=== PATIENT | female | born 1985 | race Caucasian/White ===

== ENCOUNTER 2016-11-26 22:15 | Outpatient (CLI) | payer OTHER ==
[~2016-11-26] VITALS: Ht 172.7 cm; Wt 79.0 kg
[2016-11-26 23:05] VITALS: BP 109/65; PULSE 68; RESP 18
[2016-11-26] MEDS ORDERED: PNV1TABL12 PO (23:07)
[2016-11-26 23:28] LABS: ADD UMIC NO; UR ASCORBIC ACID NEGATIVE (NEGATIVE); UR BILIRUBIN (Dip) NEGATIVE (NEGATIVE); UR BLOOD (Dip) NEGATIVE (NEGATIVE); UR CLARITY CLEAR (CLEAR); UR COLOR STRAW (YELLOW); UR GLUCOSE (Dip) NEGATIVE (NEGATIVE); UR KETONES (Dip) NEGATIVE (NEGATIVE); UR LEUKOCYTE ESTERASE (Dip) NEGATIVE Leu/ul (NEGATIVE); UR NITRITE (Dip) NEGATIVE (NEGATIVE); UR SPECIFIC GRAVITY (Dip) 1.008 (1.003-1.030); UR TOTAL PROTEIN (Dip) NEGATIVE (NEGATIVE); UR UROBILINOGEN (Dip) NEGATIVE (NEGATIVE)
[2016-11-26] MEDS ORDERED: TERBUTALINE 1 MG/ML INJ SC ONE (23:30)
[2016-11-26] MEDS ORDERED: ACETAMINOPHEN 1000MG/100ML IV 100 ML IVPB ONE (23:30)
[2016-11-26] MEDS ORDERED: LACTATED RINGER'S 500 ML IV ONE (23:30)
[2016-11-26] MEDS ORDERED: LACTATED RINGER'S 1,000 ML IV SCH (23:30)
--- NOTE | 2016-11-26 23:38 | RADRPT ---
PROCEDURE: US biophysical profile. CLINICAL INDICATION: labor at 27 weeks gestational age. TECHNIQUE: Multiple sonographic images of the uterus were obtained. The images were revi ewed on a PACS workstation. COMPARISON: No prior studies are available for comparison. FINDINGS: There is a single live intrauterine gestation. heart rate is 137 beats per minute. The position is cephalic. The placenta is anterior grade 1 with no abruption or previa. The ALEXIS is 11.1 cm. (Normal = 5-20 cm.) Breathing Movement: 2 Gross Body Movement: 2 Tone: 2 Qualitative Amniotic Fluid Volume: 2 TOTAL: 8 IMPRESSION: 1. The biophysical score is 8/8. RPTAT: QQ .Wyatt Powell MD, Date Time Electronically viewed and signed by .Wyatt Powell MD, MD on 11/26/2016 23:38 .R/
--- NOTE | 2016-11-26 23:39 | RADRPT ---
PROCEDURE: US OB. CLINICAL INDICATION: labor at 27 weeks gestational age. TECHNIQUE: Multiple sonographic images of the uterus were obtained. The images were revi ewed on a PACS workstation. COMPARISON: No prior studies are available for comparison. FINDINGS: There is a single live intrauterine gestation. heart rate is 136 beats per minute. Measurements were made in order to determine age. The results are as follows: BPD = 6.82 cm. HC = 24.59 cm. AC = 23.73 cm. FL = 5.46 cm. Estimated weight is 1179 +/- 177 grams. LMP growth percentile is 36 %. Menstrual age by ultrasound dates is 27 weeks 5 days. The estimated date of delivery is 02/20/2017. Position is cephalic and placenta is anterior grade 1. There is no evidence for an abruption or plac enta previa. IMPRESSION: 1. Single live intrauterine gestation of 27 weeks 5 days menstrual age by ultrasound dates. 2. The estimated date of delivery is 02/20/2017. RPTAT: QQ .Wyatt Powell MD, Date Time Electronically viewed and signed by .Wyatt Powell MD, on 11/26/2016 23:39 .R/
[2016-11-27 00:47] LABS: BASOPHIL # 0.1 10^3/ul (0.0-0.1); BASOPHILS % 0.3 % (0.0-2.0); EOSINOPHILS # 0.1 10^3/ul (0.0-0.5); EOSINOPHILS % 0.4 % (0.0-7.0); HEMATOCRIT 34.8 % (37.0-47.0); HEMOGLOBIN 11.7 g/dl (12.0-16.0); LYMPHOCYTES % 12.5 % (15.0-51.0); MEAN CORPUSCULAR HEMOGLOBIN 29.9 pg (29.0-33.0); MEAN CORPUSCULAR HGB CONC 33.6 g/dl (32.0-37.0); MEAN PLATELET VOLUME 11.5 fl (7.4-10.4); MONOCYTE # 0.7 10^3/ul (0.3-0.9); MONOCYTES % 4.6 % (0.0-11.0); NEUTROPHIL # 12.8 10^3/ul (1.6-7.5); NEUTROPHILS % 81.7 % (39.0-77.0); PLATELET COUNT 189 10^3/UL (140-415); RED BLOOD COUNT 3.91 10^6/ul (4.20-5.40); RED CELL DISTRIBUTION WIDTH 12.4 % (11.5-14.5); WHITE BLOOD COUNT 15.6 10^3/ul (4.8-10.8)
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
== END 2016-11-27 02:10 | disposition home or self-care (01) ==
LOC: OBT 22:15 → L-D 22:17 → OBT 11-27 02:10
PROVIDERS: ATTEND Obstetrics & Gynecology
DX: O9A.213 Injury, poisoning and certain other consequences of external causes complicating pregnancy, third trimester (principal); V49.9XXA Car occupant (driver) (passenger) injured in unspecified traffic accident, initial encounter; Y92.410 Unspecified street and highway as the place of occurrence of the external cause; O26.893 Other specified pregnancy related conditions, third trimester; I34.1 Nonrheumatic mitral (valve) prolapse; J45.909 Unspecified asthma, uncomplicated; Z3A.28 28 weeks gestation of pregnancy
CPT/HCPCS: 36415; 76815; 76818; 81003; 85025; 85460; 86850; 86900; 86901; 96360; 96361; J0131; J7120; Z7500; G0463

== ENCOUNTER 2017-01-28 23:28 | Inpatient (IN) | payer OTHER ==
[~2017-01-28] VITALS: Ht 172.7 cm; Wt 85.9 kg
[~2017-01-28 23:28] MED LIST: PNV1TABL12 PO
[2017-01-29 00:42] VITALS: Ht 172.7 cm; Wt 85.9 kg
[2017-01-29 00:43] VITALS: BP 118/75; PULSE 84; RESP 18
[2017-01-29 02:45] LABS: ADD UMIC NO; UR CLARITY CLEAR (CLEAR); UR COLOR LT. YELLOW (YELLOW)
[2017-01-29 02:46] LABS: UR BILIRUBIN (Dip) NEGATIVE (NEGATIVE); UR BLOOD (Dip) NEGATIVE (NEGATIVE); UR GLUCOSE (Dip) NEGATIVE (NEGATIVE); UR KETONES (Dip) NEGATIVE (NEGATIVE); UR LEUKOCYTE ESTERASE (Dip) NEGATIVE Leu/ul (NEGATIVE); UR NITRITE (Dip) NEGATIVE (NEGATIVE); UR TOTAL PROTEIN (Dip) NEGATIVE (NEGATIVE); UR UROBILINOGEN (Dip) 0.2 E.U./dL mg/dL (NEGATIVE)
--- NOTE | 2017-01-29 03:11 | RADRPT ---
PROCEDURE: Biophysical profile. CLINICAL INDICATION: Pelvic pain. TECHNIQUE: Multiple sonographic images of the pelvis were obtained with transabdominal technique. COMPARISON: 11/26/2016. FINDINGS: There is a single living intrauterine gestation with the fetus in a vertex position. The placenta i s anterior in location, grade 1. heart tones of 164 beats per minute are identified. There is low amniotic fluid volume with an ALEXIS of 3.6 cm. breathing movements = 2 Gross body movements = 2 tone = 2 Qualitative AFV = 0 IMPRESSION: Biophysical profile 6 out of 8. Oligohydramnios with an ALEXIS of 3.6 cm. .Grey Moncada MD, MD Date Time Electronically viewed and signed by .Grey Moncada MD, on 01/29/2017 03:10 .T/
--- NOTE | 2017-01-29 03:11 | RADRPT ---
PROCEDURE: Obstetrical ultrasound, limited. CLINICAL INDICATION: Pelvic pain. TECHNIQUE: Multiple sonographic images of the pelvis were obtained using transabdominal technique . Images were obtained with george scale and color Doppler. The images were reviewed on a PACS works tation. COMPARISON: 11/26/2016. FINDINGS: There is a single living intrauterine gestation with the fetus in a vertex presentation. hear t tones of 132 beats per minute are identified. The placenta is anterior in location, grade 1. The re is no evidence of placenta previa or abruption. Measurements were made in order to determine age. The results are as follows: BPD =8.84 cm HC =32.03 cm AC =34.02 cm FL =7.27 cm. Estimated gestational age of approximately 36 weeks and 5 days. The estimated date of delivery is 02/21/2017. The EFW = 3167 +/- 475 grams. Estimated weight percentage equals 57.9%. IMPRESSION: Single viable intrauterine gestation of approximately 36 weeks and 5 days, with an ultrasound JASON of 02/21/2017. .Grey Moncada MD, MD Date Time Electronically viewed and signed by .Grey Moncada MD, MD on 01/29/2017 03:11 .T/
[2017-01-29] MEDS: ACETAMINOPHEN 325 MG TAB PO PRN ×2 (03:30→21:16)
[2017-01-29] MEDS ORDERED: HYDROCODONE/APAP (5/325) TAB PO PRN (05:00)
[2017-01-29] MEDS ORDERED: MISOPROSTOL 200 MCG TAB PR PRN (05:00)
[2017-01-29] MEDS ORDERED: LIDOCAINE 1% (MPF) 30 ML INJ INJ PRN (05:00)
[2017-01-29] MEDS ORDERED: METHYLERGONOVINE 0.2 MG INJ IM PRN (05:00)
[2017-01-29] MEDS ORDERED: OXYTOCIN 30 UNITS/LR 500 ML IV SCH ×2 (05:00)
[2017-01-29] MEDS ORDERED: AMPICILLIN 2 GM/NS (PMX) 100 ML IV ONE (05:00)
[2017-01-29] MEDS ORDERED: OXYTOCIN 30 UNITS/LR 500 ML IV PRN (05:00)
[2017-01-29] MEDS ORDERED: CARBOPROST 250 MCG INJ IM PRN (05:00)
[2017-01-29] MEDS ORDERED: IBUPROFEN 600 MG TAB PO PRN (05:00)
[2017-01-29] MEDS ORDERED: BUTORPHANOL 2 MG INJ IV PRN ×2 (05:00)
[2017-01-29] MEDS: LACTATED RINGER'S 1,000 ML IV SCH ×4 (05:21→22:11)
[2017-01-29 06:26] LABS: BASOPHILS % 0.2 % (0.0-2.0); EOSINOPHILS # 0.1 10^3/ul (0.0-0.5); EOSINOPHILS % 0.4 % (0.0-7.0); HEMATOCRIT 33.2 % (37.0-47.0); HEMOGLOBIN 11.3 g/dl (12.0-16.0); LYMPHOCYTES # 1.7 10^3/ul (0.8-2.9); LYMPHOCYTES % 12.9 % (15.0-51.0); MEAN CORPUSCULAR HEMOGLOBIN 30.1 pg (29.0-33.0); MEAN CORPUSCULAR VOLUME 88.5 fl (82.0-101.0); MEAN PLATELET VOLUME 12.1 fl (7.4-10.4); MONOCYTES % 7.6 % (0.0-11.0); NEUTROPHIL # 10.3 10^3/ul (1.6-7.5); NEUTROPHILS % 78.1 % (39.0-77.0); PLATELET COUNT 150 10^3/UL (140-415); RED BLOOD COUNT 3.75 10^6/ul (4.20-5.40); RED CELL DISTRIBUTION WIDTH 12.1 % (11.5-14.5); WHITE BLOOD COUNT 13.2 10^3/ul (4.8-10.8)
[2017-01-29 06:29] LABS: INR 0.97
[2017-01-29 06:30] LABS: PARTIAL THROMBOPLASTIN TIME 28.6 Sec (25.0-35.0)
[2017-01-29 07:07] LABS: ALBUMIN/GLOBULIN RATIO 0.93; BILIRUBIN,INDIRECT 0.2 mg/dl (0-1.1); BILIRUBIN,TOTAL 0.2 mg/dl (0.2-1.3); CALCIUM 8.7 mg/dl (8.4-10.2); CREATININE 0.67 mg/dl (0.44-1.00); POTASSIUM 3.6 mmol/L (3.5-5.1); TOTAL PROTEIN 6.2 g/dl (6.1-8.1)
--- NOTE | 2017-01-29 07:14 | HP ---
Date/Time of Note Date/Time of Note DATE: 01/29/17 TIME: 06:55 OB - History Hx of Present Free Text/Dictation 30y.o primigravida at 37w2d presented at triage with c/o backpain which is constant espcially on left side abdomen and radiate to left thigh ,started even on 2nd trimester. EFM showed mostly irritability with irreguar uterine contractions. VE closed / long/-3 ALEXIS 3.6 admitted for hydration and repeat ALEXIS ,poss induction of labor EFW 3167gm Chief Complaint: back pain with oligohydroamnios Estimated Due Date: Feb 17, 2017 : 1 Para: 0 Spontaneous : 0 Therapeutic : 0 Care: Good Care Ultrasounds: Normal mid trimester US Obstetrical Complications: None Medical Complications: None Past Family/Social History * Past Medical, Surgical, Family and Obstetric Histories reviewed from chart. Blood Type: A+ Rubella: immune RPR/VDRL: Negative GBS Status: Negative HBsAG: Negative OB Admission Exam Vital Signs Vital Signs Vital Signs Date Time Temp Pulse Resp B/P Pulse Ox O2 Delivery O2 Flow Rate FiO2 01/29/17 00:43 99.6 84 18 118/75 Room Air Physical Exam Cervical Dilatation: None Effacement: 0% Station: -3 Membranes: Intact Amniotic Fluid: Unevaluable Heart Rate: 140's Accelerations: Accelerations Present Decelerations: No Decelerations Varibility: Moderate Contractions on Admission: >10 Minutes Apart Intensity: Mild Last 72 hours Lab Results CBC & BMP 01/29/17 05:25 OB Assessment/Plan Other Assessment: IUP 37w2d oligohydroamnios Plan: Induction Other plan: after hydration will melo the fluid volume mostlikely induction of labor dut to severe oligohydramnios afte 37weeks REX GANT MD Jan 29, 2017 07:07
[2017-01-29] MEDS ORDERED: AMPICILLIN 1 GM/NS (PMX) 50 ML IV SCH (09:00)
[2017-01-29] MEDS ORDERED: GUAIFENESIN 20 MG/ML 5ML CUP PO PRN (10:00)
[2017-01-29] MEDS ORDERED: CEPASTAT LOZENGE MT PRN (11:00)
--- NOTE | 2017-01-29 16:09 | RADRPT ---
PROCEDURE: Obstetrical ultrasound CLINICAL INDICATION: . OB ultrasound with fluid volume assessment. Oligohydramnios TECHNIQUE: Transabdominal sonographic images of the uterus obtained after first trimester , greater than 14 weeks gestation. Single intrauterine gestation present. Examination for fluid volu me assessment. COMPARISON: None available. FINDINGS: Presentation: Cephalic Partially visualized placenta: anterior heart rate: 132 Beats per minute. IMPRESSION: Amniotic fluid index equals 9.7 cm. Previously 3.5 cm. RPTAT: AADD .Artur Roy MD, MD Date Time Electronically viewed and signed by .Artur Roy MD, MD on 01/29/2017 16:08 .B/
--- NOTE | 2017-01-29 17:46 | QN ---
Documentation Comment This 31 years old female EDC of February 17, 2017 currently 37 weeks and 3 days originally was admitted for low back pain, rule out labor, during the workup noted oligohydramnios with ALEXIS of 3.6 IV hydration her ALEXIS went up to 9.7 would continue hydration until a.m. if ALEXIS within the range she may be discharged home.am or plan for induction if ALEXIS still low. TERE GALLEGO MD Jan 29, 2017 17:46
[2017-01-30] MEDS: LACTATED RINGER'S 1,000 ML IV SCH (06:01)
--- NOTE | 2017-01-30 09:06 | RADRPT ---
PROCEDURE: Obstetrical ultrasound. CLINICAL INDICATION: Low ALEXIS. TECHNIQUE: Transabdominal sonographic images of the uterus were obtained. COMPARISON: US 01/29/2017 FINDINGS: Single live intrauterine gestation with heart rate of 137 beats per minute. pr esentation is cephalic. An anterior grade II placenta is present. The amniotic fluid index equals 10 .04 and previously measured 9.7 . The gestational age by JASON equals 37 weeks 3 days IMPRESSION: 1. Single live intrauterine gestation with gestational age by JASON equal to 37 weeks 3 days. 2. The amniotic fluid index measures 10.04 and previously measured 9.7 RPTAT: HRSR Physician Giancarlo Date Time Electronically viewed and signed by Physician Giancarlo on 01/30/2017 09:06 /
--- NOTE | 2017-01-30 10:49 | PDOCDIS ---
Discharge Instructions CONDITION Patient Condition: Good HOME CARE INSTRUCTIONS: Diet Instructions: Regular ACTIVITY: Activity Restrictions: No Restrictions Bathing Restrictions: Shower FOLLOW UP/APPOINTMENTS Follow-up Plan Recommended oral and IV hydration at home , make appointment to be seen at the office on February 02 TERE GALLEGO MD Jan 30, 2017 10:49
--- NOTE | 2017-01-30 10:55 | DS ---
Date/Time of Note Date/Time of Note DATE: 01/30/17 TIME: 10:53 Discharge Summary Admission/Discharge Info Admit Date/Time Jan 29, 2017 at 03:15 Discharge Date/Time at 10:53 AM Discharge Diagnosis 37 weeks and a half admitted for evaluation of low ALEXIS, after hydration ALEXIS yun to 10.5 Patient Condition: Good Procedures Suspected oligohydramnios received adequate IV hydration ALEXIS yun to 10.5 Hx of Present Illness 37-1/2 weeks Hospital Course Satisfactory Home Meds Reported Medications Pnv Cmb#21/Iron/Folic Acid ( Complete Caplet) 1 Each Tablet, 1 EACH PO DAILY, TAB 11/26/16 Follow-up Plan Recommended oral and IV hydration at home , make appointment to be seen at the office on February 02 Primary Care Provider Care Physician No Primary Time spent on discharge: < 30 minutes TERE GALLEGO MD Jan 30, 2017 10:55
== END 2017-01-30 10:50 | disposition home or self-care (01) | DRG 782 ==
LOC: OBT 23:28 → L-D 23:38 → OBT 01-29 03:15
PROVIDERS: ADMIT Obstetrics & Gynecology; ATTEND Obstetrics & Gynecology
DX: O41.03X0 Oligohydramnios, third trimester, not applicable or unspecified (principal); Z3A.37 37 weeks gestation of pregnancy
CPT/HCPCS: 76815; 76816; 76818; 80053; 81003; 85025; 85610; 85730; 86592; 86900; 86901; 87086; 87340; G0463; J7120

== ENCOUNTER 2017-02-14 12:15 | Inpatient (IN) | END 2017-02-17 14:30 | disposition home or self-care (01) | DRG 775 ==